=== PATIENT | male | born 1975 | race Caucasian/White ===

== ENCOUNTER → 2016-10-23 | Outpatient (CLI) | payer OTHER | LOC: GMA 17:36 | PROVIDERS: ATTEND Nurse Practitioner Family | DX: R21 Rash and other nonspecific skin eruption (principal) ==

== ENCOUNTER → 2018-07-26 | Outpatient (CLI) | payer OTHER | LOC: GMATM 17:38 | PROVIDERS: ATTEND Nurse Practitioner Family | DX: R07.2 Precordial pain (principal); R53.83 Other fatigue ==

== ENCOUNTER → 2018-07-26 | Outpatient (CLI) | payer OTHER ==
--- NOTE | 2018-07-26 19:35 | RAD ---
EXAM DESCRIPTION: Chest,2 Views CLINICAL HISTORY: PRECORDIAL PAIN COMPARISON: None. FINDINGS: Two views of the chest are submitted. Cardiac silhouette appears normal. No focal parenchymal or pleural disease. No acute bony abnormality. There is no significant pulmonary vascular engorgement. IMPRESSION: No evidence of acute cardiopulmonary disease. Electronically signed by: Nickolas Talavera 07/26/2018 7:34 PM [facility]
== END ==
LOC: RAD 18:30
PROVIDERS: ATTEND Nurse Practitioner Family
DX: R07.2 Precordial pain (principal)

== ENCOUNTER 2019-06-12 14:25 | Emergency (ER) | payer OTHER ==
[2019-06-12 14:41] VITALS: BP 150/99; TEMP 97; O2SAT 98
[2019-06-12] MEDS ORDERED: methylPREDNISolone SODIUM SUC 125 MG/2 ML VIAL IM ONE (14:58)
--- NOTE | 2019-06-12 15:01 | ED.PDOC ---
History of Present Illness - General Chief Complaint: ENT Problem Stated Complaint: sore throat,swollen uvula Time Seen by Provider: 06/12/19 14:57 - History of Present Illness Initial Comments: c/o having swelling in the Uvula causing difficulty in breathing and eating , no fever or chills or cough or vomiting Timing/Duration: abrupt, this morning EENT Location: throat Improving Factors: nothing Worsening Factors: nothing Allergies/Adverse Reactions: Allergies NO KNOWN ALLERGY Allergy (Verified 06/12/19 14:39) Home Medications: Ambulatory Orders Prednisone 50 mg PO ONCE #5 tab 06/12/19 Review of Systems - Review of Systems Constitutional: States: no symptoms reported EENTM: States: see HPI Respiratory: States: no symptoms reported Cardiology: States: no symptoms reported Gastrointestinal/Abdominal: States: no symptoms reported Genitourinary: States: no symptoms reported Musculoskeletal: States: no symptoms reported Skin: States: no symptoms reported Neurological: States: no symptoms reported Endocrine: States: no symptoms reported Hematologic/Lymphatic: States: no symptoms reported Past Medical History (General) - Patient Medical History Hx Stroke: No Hx Congestive Heart Failure: No Hx Diabetes: No Surgical History: no surgical history - Vaccination History Hx Influenza Vaccination: Yes - Social History Hx Tobacco Use: No Family Medical History - Family History Father Family History: Unknown Living Status: Unknown Physical Exam - Physical Exam General Appearance: Alert, Comfortable, Well Developed, Well Groomed, Well Hydrated, Well Nourished Eye Exam: bilateral normal Ear Exam: bilateral ear: auricle normal Nasal Exam: normal inspection Throat Exam: uvula swelling, other - erythrmatous pharynx Neck: non-tender, full range of motion, supple, normal inspection Cardiovascular/Respiratory: regular rate, rhythm, no M/R/G Abdominal Exam: non-tender Neurologic: no motor/sensory deficits, alert, normal mood/affect, oriented x 3 Skin Exam: normal color Progress - Results/Orders Results/Orders: 06/12/19 15:03 STREP A SCREEN CULTURE Stat Laboratory Results Group A Strep Rapid Negative (NEGATIVE) 06/12/19 15:03 Departure - Departure Clinical Impression: Uvular swelling, Uvulitis Disposition: Discharge to Home or Self Care Departure Forms: ED Discharge - Pt. Copy, Patient Portal Self Enrollment Instructions: DI for Ear Pain-Adult Prescriptions: Prednisone 50 mg PO ONCE #5 tab Home Medications: Ambulatory Orders Prednisone 50 mg PO ONCE #5 tab 06/12/19
== END 2019-06-12 16:13 | disposition home or self-care (01) ==
LOC: ER 14:25
DX: K12.2 Cellulitis and abscess of mouth (principal)